=== PATIENT | female | born 1975 | race Hispanic/Latino ===

== ENCOUNTER 2017-03-01 15:23 | Inpatient (IN) | payer SELFPAY ==
[~2017-03-01] VITALS: Ht 160 cm; Wt 100.0 kg
[2017-03-01 16:42] LABS: EOSINOPHIL (%) 0.2 % (0-5); HEMATOCRIT 54.2 % (36.0-46.0); IMMATURE GRANULOCYTE (%) 0.4 % (0.0-0.7); IMMATURE GRANULOCYTE COUNT 0.1 K/uL; INSTRUMENT ABS NEUTROPHIL CT 9.5 K/uL; LYMPHOCYTE COUNT 1.4 K/uL (1.0-2.8); MCH 29.6 PG (29.0-34.0); MCHC 33.8 G/DL (30.0-36.0); MCV 87.7 FL (83-99); MEAN PLAT.VOLUME 12.9 uM^3 (9.5-12.4); NEUTROPHIL (%) 79.9 % (45-76); NEUTROPHIL COUNT 9.5 K/uL (1.8-6.4); PLATELET COUNT 192 K/uL (156-360); RBC DIS.WIDTH-CV 15.4 % (11.8-14.6); RBC DIS.WIDTH-SD 47.5 % (39-53); RED BLOOD COUNT 6.18 M/uL (3.80-5.20); WHITE BLOOD COUNT 11.9 K/uL (4.1-10.2)
[2017-03-01 17:00] LABS: CHLORIDE 91 mEq/L (99-109); POTASSIUM 4.2 mEq/L (3.7-5.4); SODIUM 130 mEq/L (136-147)
[2017-03-01 17:02] LABS: GLUCOSE 146 mg/dL (70-99)
[2017-03-01 17:03] LABS: ANION GAP 13 MEQ/L (2-14)
[2017-03-01 17:04] LABS: TOTAL BILIRUBIN 3.4 mg/dL (0.0-1.0)
[2017-03-01 17:06] LABS: ALKALINE PHOSPHATASE 115 IU/L (3-129); GFR ESTIMATE (CALCULATED) > 59 mL/min/
[2017-03-01 17:07] LABS: UREA NITROGEN (BUN) 12 mg/dL (9-23)
[2017-03-01 18:09] LABS: C-REACTIVE PROTEIN 315.4 MG/L (0-10)
[2017-03-01 22:00] VITALS: BP 143/109; BP 146/114
[2017-03-01 22:54] VITALS: BP 147/89
[2017-03-02] VITALS (10 sets, daily range): BP systolic 93–136; BP diastolic 60–75
[2017-03-02 06:45] LABS: ANION GAP 9 MEQ/L (2-14); CHLORIDE 94 MEQ/L (99-109); GFR ESTIMATE (CALCULATED) > 59 mL/min/; GLUCOSE 145 mg/dL (70-99); HDL CHOLESTEROL 38 MG/DL (Desirable>=50); LDL CHOLESTEROL 79 mg/dL (Desirable<100); NON-HDL CHOLESTEROL 93 mg/dL (Desirable<160); POTASSIUM 3.9 MEQ/L (3.7-5.4); SAMPLE HEMOLYSIS CHECK 2; SAMPLE ICTERIC CHECK 0; SAMPLE LIPEMIA CHECK 0; SODIUM 132 MEQ/L (136-147); TOTAL CHOLESTEROL 131 mg/dL (Desirable<200); TRIGLYCERIDES 72 MG/DL (Normal: <150); UREA NITROGEN (BUN) 13 mg/dL (9-23)
[2017-03-02 07:40] LABS: HEMATOCRIT 52.2 % (36.0-46.0); MCH 29.8 PG (29.0-34.0); MCHC 33.7 G/DL (30.0-36.0); MCV 88.3 FL (83-99); PLATELET COUNT 142 K/uL (156-360); RBC DIS.WIDTH-CV 15.3 % (11.8-14.6); RBC DIS.WIDTH-SD 48.3 % (39-53); RED BLOOD COUNT 5.91 M/uL (3.80-5.20); WHITE BLOOD COUNT 11.4 K/uL (4.1-10.2)
[2017-03-02 07:52] LABS: POINT-OF-CARE METER ID UU13113781
[2017-03-02 08:04] LABS: Estimated Average Glucose 171 mg/dL (70-123); HEMOGLOBIN A1c (GLYCOHEMOGLOB) 7.6 % HGB (Below 5.7)
[2017-03-02 11:21] LABS: POINT-OF-CARE METER ID UU13113781
[2017-03-02 19:12] LABS: BASE EXCESS 1.7 mEq/L (-3 to +3); BICARBONATE 24.6 mEq/L (22-26); CARBOXY HGB 2.1 % (0-5); COMMENTS - BLOOD GASES C+; METHEMOGLOBIN 1.5 % (0-1.5); PCO2 33 mm Hg (35-45); PO2 224 mm Hg (80-100); SITE RR; pH 7.48 (7.35-7.45)
[2017-03-02 19:13] LABS: DEVICE VENT; FI02 100 %; MECHANICAL RATE 18 resp/min; MODE AC; PEEP 5 CM/H20; TIDAL VOLUME 400 ML; TOTAL RESP RATE 18 resp/min
[2017-03-02 20:34] LABS: EOSINOPHIL (%) 0.4 % (0-5); EOSINOPHIL COUNT 0.1 K/uL (0-0.3); HEMATOCRIT 47.5 % (36.0-46.0); IMMATURE GRANULOCYTE (%) 0.6 % (0.0-0.7); IMMATURE GRANULOCYTE COUNT 0.1 K/uL; INSTRUMENT ABS NEUTROPHIL CT 10.1 K/uL; MCH 29.7 PG (29.0-34.0); MCHC 32.6 G/DL (30.0-36.0); MEAN PLAT.VOLUME 12.7 uM^3 (9.5-12.4); MONOCYTE (%) 9.8 % (3-12); MONOCYTE COUNT 1.2 K/uL (0-0.8); NEUTROPHIL (%) 81.4 % (45-76); NEUTROPHIL COUNT 10.1 K/uL (1.8-6.4); PLATELET COUNT 177 K/uL (156-360); RBC DIS.WIDTH-CV 15.6 % (11.8-14.6); RBC DIS.WIDTH-SD 51.2 % (39-53); RED BLOOD COUNT 5.22 M/uL (3.80-5.20); WHITE BLOOD COUNT 12.5 K/uL (4.1-10.2)
[2017-03-02 20:52] LABS: POTASSIUM 3.2 mEq/L (3.7-5.4); SODIUM 135 mEq/L (136-147)
[2017-03-02 20:53] LABS: MAGNESIUM 1.4 mg/dL (1.3-2.7)
[2017-03-02 20:56] LABS: ANION GAP 12 MEQ/L (2-14)
[2017-03-02 20:58] LABS: GFR ESTIMATE (CALCULATED) > 59 mL/min/
[2017-03-02 20:59] LABS: UREA NITROGEN (BUN) 16 mg/dL (9-23)
[2017-03-02 21:12] LABS: CHLORIDE 101 mEq/L (99-109); GLUCOSE 107 mg/dL (70-99)
[2017-03-02 22:07] LABS: TROP-I INTERPRETATION POSITIVE; TROPONIN-I 4.79 ng/mL (0.0-0.30)
[2017-03-02 22:44] LABS: POINT-OF-CARE METER ID UU13113803; POINT-OF-CARE USER ID RADDRS44
[2017-03-03] VITALS (15 sets, daily range): BP systolic 92–131; BP diastolic 64–84
[2017-03-03 00:15] LABS: METH RESISTANT S AUREUS PCR NEGATIVE (NEGATIVE)
[2017-03-03 00:19] LABS: PROBE CHECK PASS; SPECIMEN PROCESSING CONTROL PASS
[2017-03-03 06:53] LABS: TROP-I INTERPRETATION POSITIVE
[2017-03-03 07:20] LABS: HEMATOCRIT 48.6 % (36.0-46.0); MCHC 33.7 G/DL (30.0-36.0); MCV 88.8 FL (83-99); MEAN PLAT.VOLUME 13.2 uM^3 (9.5-12.4); PLATELET COUNT 189 K/uL (156-360); RBC DIS.WIDTH-CV 15.5 % (11.8-14.6); RED BLOOD COUNT 5.47 M/uL (3.80-5.20); WHITE BLOOD COUNT 12.1 K/uL (4.1-10.2)
[2017-03-03 07:26] LABS: INTER. NORMALIZED RATIO 1.3; PROTHROMBIN TIME 12.9 (9.2-11.2); PTT 31.2 (25-32)
[2017-03-03 07:57] LABS: ALKALINE PHOSPHATASE 94 IU/L (3-129); ANION GAP 13 MEQ/L (2-14); CHLORIDE 97 MEQ/L (99-109); GFR ESTIMATE (CALCULATED) > 59 mL/min/; GLUCOSE 100 mg/dL (70-99); POTASSIUM 3.3 MEQ/L (3.7-5.4); SAMPLE HEMOLYSIS CHECK 0; SAMPLE ICTERIC CHECK 0; SAMPLE LIPEMIA CHECK 0; SODIUM 135 MEQ/L (136-147); TOTAL BILIRUBIN 2.3 MG/DL (0.0-1.0); UREA NITROGEN (BUN) 18 mg/dL (9-23)
[2017-03-03 08:25] LABS: POINT-OF-CARE METER ID UU14174217
[2017-03-03 11:33] LABS: VANCOMYCIN, TROUGH 16.4 MCG/ML (10-20)
[2017-03-03 12:47] LABS: POINT-OF-CARE METER ID UU14174217
[2017-03-03 14:41] LABS: MAGNESIUM 1.7 mg/dl (1.3-2.7)
[2017-03-03 15:59] LABS: POINT-OF-CARE METER ID UU14174217
[2017-03-03 17:59] LABS: TROP-I INTERPRETATION POSITIVE; TROPONIN-I 1.64 ng/mL (0.0-0.30)
[2017-03-03 22:52] LABS: POINT-OF-CARE METER ID UU14174217
[2017-03-04] VITALS: BP 106/69
[2017-03-04 01:18] VITALS: BP 132/87
[2017-03-04 05:42] VITALS: BP 129/84
[2017-03-04 07:39] VITALS: BP 139/96
[2017-03-04 08:11] LABS: POINT-OF-CARE METER ID UU14174216
[2017-03-04 08:51] LABS: TROPONIN-I 0.99 ng/mL (0.0-0.30)
[2017-03-04 08:52] LABS: TROP-I INTERPRETATION POSITIVE
[2017-03-04 09:24] LABS: ANION GAP 12 MEQ/L (2-14); CHLORIDE 98 MEQ/L (99-109); GFR ESTIMATE (CALCULATED) > 59 mL/min/; GLUCOSE 109 mg/dL (70-99); POTASSIUM 3.2 MEQ/L (3.7-5.4); SAMPLE HEMOLYSIS CHECK 0; SAMPLE ICTERIC CHECK 0; SAMPLE LIPEMIA CHECK 0; SODIUM 138 MEQ/L (136-147); UREA NITROGEN (BUN) 18 mg/dL (9-23)
[2017-03-04 09:45] LABS: EOSINOPHIL COUNT 0.2 K/uL (0-0.3); HEMATOCRIT 49.9 % (36.0-46.0); IMMATURE GRANULOCYTE (%) 0.4 % (0.0-0.7); INSTRUMENT ABS NEUTROPHIL CT 6.2 K/uL; LYMPHOCYTE COUNT 1.2 K/uL (1.0-2.8); MCH 29.5 PG (29.0-34.0); MCHC 32.7 G/DL (30.0-36.0); MCV 90.4 FL (83-99); MEAN PLAT.VOLUME 13.3 uM^3 (9.5-12.4); MONOCYTE (%) 15.1 % (3-12); MONOCYTE COUNT 1.4 K/uL (0-0.8); NEUTROPHIL (%) 68.7 % (45-76); NEUTROPHIL COUNT 6.2 K/uL (1.8-6.4); PLATELET COUNT 170 K/uL (156-360); RBC DIS.WIDTH-CV 15.7 % (11.8-14.6); RBC DIS.WIDTH-SD 51.8 % (39-53); RED BLOOD COUNT 5.52 M/uL (3.80-5.20)
[2017-03-04 11:59] LABS: POINT-OF-CARE METER ID UU14174216
[2017-03-04 16:52] LABS: POINT-OF-CARE METER ID UU14174216
[2017-03-04 16:55] VITALS: BP 139/94
[2017-03-04 19:43] VITALS: BP 146/74
[2017-03-04 20:50] LABS: POINT-OF-CARE METER ID UU14174216
[2017-03-05 03:56] VITALS: BP 132/90
[2017-03-05 07:49] LABS: EOSINOPHIL (%) 1.1 % (0-5); EOSINOPHIL COUNT 0.1 K/uL (0-0.3); HEMATOCRIT 49.6 % (36.0-46.0); IMMATURE GRANULOCYTE (%) 0.6 % (0.0-0.7); IMMATURE GRANULOCYTE COUNT 0.1 K/uL; INSTRUMENT ABS NEUTROPHIL CT 5.9 K/uL; LYMPHOCYTE COUNT 1.1 K/uL (1.0-2.8); MCH 29.6 PG (29.0-34.0); MCHC 33.3 G/DL (30.0-36.0); MEAN PLAT.VOLUME 13.2 uM^3 (9.5-12.4); MONOCYTE (%) 12.6 % (3-12); NEUTROPHIL (%) 72.2 % (45-76); NEUTROPHIL COUNT 5.9 K/uL (1.8-6.4); PLATELET COUNT 203 K/uL (156-360); RBC DIS.WIDTH-CV 15.7 % (11.8-14.6); RED BLOOD COUNT 5.57 M/uL (3.80-5.20); WHITE BLOOD COUNT 8.2 K/uL (4.1-10.2)
[2017-03-05 08:06] LABS: POINT-OF-CARE METER ID UU14174216; POINT-OF-CARE USER ID ENVKC36
[2017-03-05 08:20] LABS: ANION GAP 9 MEQ/L (2-14); CHLORIDE 100 MEQ/L (99-109); GFR ESTIMATE (CALCULATED) > 59 mL/min/; GLUCOSE 143 mg/dL (70-99); POTASSIUM 3.5 MEQ/L (3.7-5.4); SAMPLE HEMOLYSIS CHECK 0; SAMPLE ICTERIC CHECK 0; SAMPLE LIPEMIA CHECK 0; SODIUM 137 MEQ/L (136-147); UREA NITROGEN (BUN) 19 mg/dL (9-23)
[2017-03-05 12:12] LABS: POINT-OF-CARE METER ID UU13113781; POINT-OF-CARE USER ID ENVKC36
[2017-03-05 16:26] LABS: POINT-OF-CARE METER ID UU14174216; POINT-OF-CARE USER ID ENVKC36
[2017-03-05 21:17] VITALS: BP 154/107
[2017-03-05 22:04] LABS: POINT-OF-CARE METER ID UU14174216
[2017-03-05 23:33] VITALS: BP 134/63; BP 134/93
[2017-03-06 03:33] VITALS: BP 137/93
[2017-03-06 06:04] LABS: HEMATOCRIT 50.4 % (36.0-46.0); MCH 29.4 PG (29.0-34.0); MCHC 32.5 G/DL (30.0-36.0); MCV 90.3 FL (83-99); MEAN PLAT.VOLUME 12.3 uM^3 (9.5-12.4); PLATELET COUNT 234 K/uL (156-360); RBC DIS.WIDTH-CV 15.8 % (11.8-14.6); RBC DIS.WIDTH-SD 52.1 % (39-53); RED BLOOD COUNT 5.58 M/uL (3.80-5.20); WHITE BLOOD COUNT 7.4 K/uL (4.1-10.2)
[2017-03-06 06:38] LABS: CHLORIDE 102 mEq/L (99-109); POTASSIUM 3.8 mEq/L (3.7-5.4); SODIUM 139 mEq/L (136-147)
[2017-03-06 06:39] LABS: MAGNESIUM 1.6 mg/dL (1.3-2.7)
[2017-03-06 06:40] LABS: GLUCOSE 132 mg/dL (70-99)
[2017-03-06 06:42] LABS: ANION GAP 12 MEQ/L (2-14)
[2017-03-06 06:44] LABS: GFR ESTIMATE (CALCULATED) 44 mL/min/
[2017-03-06 06:45] LABS: UREA NITROGEN (BUN) 21 mg/dL (9-23)
[2017-03-06 07:27] LABS: EOSINOPHIL COUNT 0.2 K/uL (0-0.3); IMMATURE GRANULOCYTE (%) 0.7 % (0.0-0.7); IMMATURE GRANULOCYTE COUNT 0.1 K/uL; INSTRUMENT ABS NEUTROPHIL CT 4.9 K/uL; LYMPHOCYTE COUNT 1.2 K/uL (1.0-2.8); MONOCYTE (%) 13.7 % (3-12); NEUTROPHIL (%) 66.8 % (45-76); NEUTROPHIL COUNT 4.9 K/uL (1.8-6.4)
[2017-03-06 07:42] VITALS: BP 158/98
[2017-03-06 07:46] LABS: POINT-OF-CARE METER ID UU13113781
[2017-03-06 16:29] LABS: POINT-OF-CARE METER ID UU14174216
[2017-03-06 18:15] VITALS: BP 164/96
[2017-03-06 19:01] LABS: C DIFF TOXIN NEGATIVE (NEGATIVE)
[2017-03-06 19:05] LABS: PROBE CHECK PASS; SPECIMEN PROCESSING CONTROL PASS
[2017-03-06 20:00] VITALS: BP 149/99
[2017-03-06 21:21] LABS: POINT-OF-CARE METER ID UU13113781
[2017-03-06 23:55] VITALS: BP 145/96
[2017-03-07 04:00] VITALS: BP 131/95
[2017-03-07 06:29] LABS: HEMATOCRIT 48.9 % (36.0-46.0); MCH 29.4 PG (29.0-34.0); MCHC 32.7 G/DL (30.0-36.0); MCV 89.7 FL (83-99); MEAN PLAT.VOLUME 12.4 uM^3 (9.5-12.4); PLATELET COUNT 220 K/uL (156-360); RBC DIS.WIDTH-CV 15.8 % (11.8-14.6); RBC DIS.WIDTH-SD 50.9 % (39-53); RED BLOOD COUNT 5.45 M/uL (3.80-5.20); WHITE BLOOD COUNT 5.8 K/uL (4.1-10.2)
[2017-03-07 07:04] LABS: ANION GAP 9 MEQ/L (2-14); CHLORIDE 104 MEQ/L (99-109); GFR ESTIMATE (CALCULATED) 41 mL/min/; GLUCOSE 117 mg/dL (70-99); POTASSIUM 3.7 MEQ/L (3.7-5.4); SAMPLE HEMOLYSIS CHECK 0; SAMPLE ICTERIC CHECK 0; SAMPLE LIPEMIA CHECK 0; SODIUM 140 MEQ/L (136-147); UREA NITROGEN (BUN) 25 mg/dL (9-23)
[2017-03-07 07:45] LABS: POINT-OF-CARE METER ID UU13113781
[2017-03-07 08:11] VITALS: BP 131/85
[2017-03-07 11:32] LABS: POINT-OF-CARE METER ID UU14174216
[2017-03-07 11:33] VITALS: BP 137/84
[2017-03-07 16:37] LABS: POINT-OF-CARE METER ID UU14174216
[2017-03-07 20:00] VITALS: BP 157/98
[2017-03-07 20:40] LABS: POINT-OF-CARE METER ID UU14174216
[2017-03-07 23:55] VITALS: BP 172/98
[2017-03-08 04:00] VITALS: BP 129/90; BP 144/93
[2017-03-08 06:44] LABS: ANION GAP 8 MEQ/L (2-14); CHLORIDE 102 MEQ/L (99-109); GFR ESTIMATE (CALCULATED) 38 mL/min/; GLUCOSE 110 mg/dL (70-99); POTASSIUM 4.1 MEQ/L (3.7-5.4); SAMPLE HEMOLYSIS CHECK 0; SAMPLE ICTERIC CHECK 0; SAMPLE LIPEMIA CHECK 0; SODIUM 140 MEQ/L (136-147); UREA NITROGEN (BUN) 30 mg/dL (9-23)
[2017-03-08 07:50] VITALS: BP 155/86
[2017-03-08 07:59] LABS: POINT-OF-CARE METER ID UU14174216
[2017-03-08 11:43] LABS: POINT-OF-CARE METER ID UU14174216
[2017-03-08 11:54] VITALS: BP 136/83
[2017-03-08 16:27] LABS: POINT-OF-CARE METER ID UU14174216
[2017-03-08 16:32] VITALS: BP 168/97
[2017-03-08 20:15] VITALS: BP 147/85
[2017-03-08 21:45] LABS: POINT-OF-CARE METER ID UU13113781
[2017-03-08 23:55] VITALS: BP 138/97
[2017-03-09 04:02] VITALS: BP 155/90
[2017-03-09 07:10] LABS: ANION GAP 8 MEQ/L (2-14); CHLORIDE 104 MEQ/L (99-109); GFR ESTIMATE (CALCULATED) 38 mL/min/; GLUCOSE 133 mg/dL (70-99); POTASSIUM 3.8 MEQ/L (3.7-5.4); SAMPLE HEMOLYSIS CHECK 0; SAMPLE ICTERIC CHECK 0; SAMPLE LIPEMIA CHECK 0; SODIUM 141 MEQ/L (136-147); UREA NITROGEN (BUN) 34 mg/dL (9-23)
[2017-03-09 07:46] VITALS: BP 157/91
[2017-03-09 11:41] LABS: POINT-OF-CARE METER ID UU13113781
[2017-03-09 11:51] VITALS: BP 164/96
[2017-03-09 13:00] VITALS: BP 157/91
[2017-03-09 16:06] LABS: POINT-OF-CARE METER ID UU14174216
[2017-03-09 16:27] VITALS: BP 172/99
[2017-03-09 20:18] VITALS: BP 142/73
[2017-03-09 22:22] LABS: POINT-OF-CARE USER ID ENVMNS
[2017-03-10 01:07] VITALS: BP 177/89
[2017-03-10 04:27] VITALS: BP 159/91
[2017-03-10 07:43] VITALS: BP 174/94
[2017-03-10 08:04] LABS: ANION GAP 8 MEQ/L (2-14); CHLORIDE 104 MEQ/L (99-109); GFR ESTIMATE (CALCULATED) 38 mL/min/; GLUCOSE 121 mg/dL (70-99); POTASSIUM 3.4 MEQ/L (3.7-5.4); SAMPLE HEMOLYSIS CHECK 0; SAMPLE ICTERIC CHECK 0; SAMPLE LIPEMIA CHECK 0; SODIUM 143 MEQ/L (136-147); UREA NITROGEN (BUN) 33 mg/dL (9-23)
[2017-03-10 08:11] LABS: POINT-OF-CARE METER ID UU14174216; POINT-OF-CARE USER ID ENVKC36
[2017-03-10 11:57] VITALS: BP 178/95
[2017-03-10 12:19] LABS: POINT-OF-CARE METER ID UU13113781; POINT-OF-CARE USER ID ENVKC36
[2017-03-10 15:08] VITALS: BP 174/98
[2017-03-10 16:27] LABS: POINT-OF-CARE METER ID UU14174216; POINT-OF-CARE USER ID ENVKC36
[2017-03-10 21:05] VITALS: BP 169/108
[2017-03-10 21:16] LABS: POINT-OF-CARE METER ID UU13113781
[2017-03-11 00:46] VITALS: BP 136/81
[2017-03-11 05:47] LABS: ANION GAP 9 MEQ/L (2-14); CHLORIDE 103 MEQ/L (99-109); GFR ESTIMATE (CALCULATED) 41 mL/min/; GLUCOSE 122 mg/dL (70-99); POTASSIUM 3.5 MEQ/L (3.7-5.4); SAMPLE HEMOLYSIS CHECK 0; SAMPLE ICTERIC CHECK 0; SAMPLE LIPEMIA CHECK 0; SODIUM 142 MEQ/L (136-147); UREA NITROGEN (BUN) 30 mg/dL (9-23)
[2017-03-11 08:15] LABS: POINT-OF-CARE METER ID UU13113781; POINT-OF-CARE USER ID ENVKC36
[2017-03-11 09:14] VITALS: BP 163/97
[2017-03-11 11:23] LABS: POINT-OF-CARE USER ID ENVKC36
[2017-03-11 12:04] VITALS: BP 140/91
[2017-03-11 14:42] VITALS: BP 142/94
[2017-03-11 16:37] LABS: POINT-OF-CARE USER ID ENVKC36
[2017-03-12 00:33] VITALS: BP 157/96
[2017-03-12 04:13] VITALS: BP 131/86
[2017-03-12 06:12] LABS: POINT-OF-CARE METER ID UU14188577
[2017-03-12 07:10] LABS: HEMATOCRIT 48.6 % (36.0-46.0); MCH 29.7 PG (29.0-34.0); MCHC 32.7 G/DL (30.0-36.0); MCV 90.7 FL (83-99); MEAN PLAT.VOLUME 12.2 uM^3 (9.5-12.4); PLATELET COUNT 232 K/uL (156-360); RBC DIS.WIDTH-CV 15.8 % (11.8-14.6); RBC DIS.WIDTH-SD 51.4 % (39-53); RED BLOOD COUNT 5.36 M/uL (3.80-5.20)
[2017-03-12 07:11] LABS: WHITE BLOOD COUNT 8.6 K/uL (4.1-10.2)
[2017-03-12 07:28] LABS: ANION GAP 8 MEQ/L (2-14); CHLORIDE 104 MEQ/L (99-109); GFR ESTIMATE (CALCULATED) 48 mL/min/; GLUCOSE 111 mg/dL (70-99); SAMPLE HEMOLYSIS CHECK 0; SAMPLE ICTERIC CHECK 0; SAMPLE LIPEMIA CHECK 0; SODIUM 140 MEQ/L (136-147); UREA NITROGEN (BUN) 31 mg/dL (9-23)
[2017-03-12 08:45] VITALS: BP 154/92
[2017-03-12 12:46] VITALS: BP 151/88
[2017-03-12 16:34] VITALS: BP 145/90
[2017-03-12 20:00] VITALS: BP 158/89
[2017-03-13] VITALS: BP 163/98
[2017-03-13 03:48] VITALS: BP 147/89
[2017-03-13 07:35] VITALS: BP 163/97
[2017-03-13 07:36] LABS: ANION GAP 10 MEQ/L (2-14); CHLORIDE 102 MEQ/L (99-109); GFR ESTIMATE (CALCULATED) 48 mL/min/; GLUCOSE 122 mg/dL (70-99); POTASSIUM 3.8 MEQ/L (3.7-5.4); SAMPLE HEMOLYSIS CHECK 0; SAMPLE ICTERIC CHECK 0; SAMPLE LIPEMIA CHECK 0; SODIUM 138 MEQ/L (136-147); UREA NITROGEN (BUN) 28 mg/dL (9-23)
[2017-03-13 10:11] LABS: HEMATOCRIT 49.8 % (36.0-46.0); MCH 29.4 PG (29.0-34.0); MCHC 32.7 G/DL (30.0-36.0); MCV 89.7 FL (83-99); MEAN PLAT.VOLUME 12.5 uM^3 (9.5-12.4); PLATELET COUNT 220 K/uL (156-360); RBC DIS.WIDTH-CV 15.9 % (11.8-14.6); RED BLOOD COUNT 5.55 M/uL (3.80-5.20); WHITE BLOOD COUNT 7.5 K/uL (4.1-10.2)
[2017-03-13 10:24] LABS: CHLORIDE 104 mEq/L (99-109); POTASSIUM 4.1 mEq/L (3.7-5.4); SODIUM 142 mEq/L (136-147)
[2017-03-13 10:26] LABS: GLUCOSE 133 mg/dL (70-99)
[2017-03-13 10:28] LABS: ANION GAP 9 MEQ/L (2-14)
[2017-03-13 10:30] LABS: GFR ESTIMATE (CALCULATED) 48 mL/min/
[2017-03-13 10:31] LABS: UREA NITROGEN (BUN) 26 mg/dL (9-23)
[2017-03-13 15:30] VITALS: BP 157/96
[2017-03-13 16:48] LABS: POINT-OF-CARE METER ID UU14188577
[2017-03-13 19:25] VITALS: BP 158/99
[2017-03-14 00:21] VITALS: BP 163/101
[2017-03-14 03:41] VITALS: BP 135/87
[2017-03-14 06:12] LABS: POINT-OF-CARE METER ID UU14188577
[2017-03-14 07:16] VITALS: BP 152/99
[2017-03-14 10:20] VITALS: BP 160/99
[2017-03-14 11:44] LABS: POINT-OF-CARE METER ID UU14188577
[2017-03-14 15:25] VITALS: BP 139/93
[2017-03-14 16:30] LABS: POINT-OF-CARE METER ID UU14149397
[2017-03-14 19:57] VITALS: BP 168/105
[2017-03-14 21:42] LABS: POINT-OF-CARE METER ID UU14188577
[2017-03-15 00:10] VITALS: BP 147/91
[2017-03-15 03:43] VITALS: BP 138/83
[2017-03-15 07:04] LABS: HEMATOCRIT 46.4 % (36.0-46.0); MCH 30.6 PG (29.0-34.0); MCHC 33.2 G/DL (30.0-36.0); MCV 92.2 FL (83-99); MEAN PLAT.VOLUME 12.8 uM^3 (9.5-12.4); PLATELET COUNT 208 K/uL (156-360); RBC DIS.WIDTH-CV 16.2 % (11.8-14.6); RBC DIS.WIDTH-SD 53.1 % (39-53); RED BLOOD COUNT 5.03 M/uL (3.80-5.20); WHITE BLOOD COUNT 8.3 K/uL (4.1-10.2)
[2017-03-15 07:48] LABS: ANION GAP 9 MEQ/L (2-14); CHLORIDE 104 MEQ/L (99-109); GFR ESTIMATE (CALCULATED) 53 mL/min/; GLUCOSE 117 mg/dL (70-99); POTASSIUM 4.1 MEQ/L (3.7-5.4); SAMPLE HEMOLYSIS CHECK 0; SAMPLE ICTERIC CHECK 0; SAMPLE LIPEMIA CHECK 0; SODIUM 144 MEQ/L (136-147); UREA NITROGEN (BUN) 25 mg/dL (9-23)
[2017-03-15 07:55] VITALS: BP 152/91
[2017-03-15 11:57] LABS: POINT-OF-CARE METER ID UU14188577
[2017-03-15 16:27] VITALS: BP 155/89
[2017-03-15 17:11] LABS: POINT-OF-CARE METER ID UU14188577
[2017-03-15 21:01] VITALS: BP 146/94
[2017-03-15 22:10] LABS: POINT-OF-CARE METER ID UU14188577
[2017-03-15 23:33] VITALS: BP 146/86
[2017-03-16 04:09] VITALS: BP 132/76
[2017-03-16 06:52] LABS: POINT-OF-CARE METER ID UU14188577
[2017-03-16 09:18] LABS: HEMATOCRIT 47.5 % (36.0-46.0); MCH 30.1 PG (29.0-34.0); MCHC 32.4 G/DL (30.0-36.0); MCV 92.8 FL (83-99); MEAN PLAT.VOLUME 13.1 uM^3 (9.5-12.4); PLATELET COUNT 216 K/uL (156-360); RBC DIS.WIDTH-CV 16.1 % (11.8-14.6); RBC DIS.WIDTH-SD 53.6 % (39-53); RED BLOOD COUNT 5.12 M/uL (3.80-5.20); WHITE BLOOD COUNT 7.2 K/uL (4.1-10.2)
[2017-03-16 09:43] LABS: ANION GAP 8 MEQ/L (2-14); CHLORIDE 103 MEQ/L (99-109); GFR ESTIMATE (CALCULATED) 58 mL/min/; GLUCOSE 105 mg/dL (70-99); POTASSIUM 3.4 MEQ/L (3.7-5.4); SAMPLE HEMOLYSIS CHECK 0; SAMPLE ICTERIC CHECK 0; SAMPLE LIPEMIA CHECK 0; SODIUM 143 MEQ/L (136-147); UREA NITROGEN (BUN) 19 mg/dL (9-23)
[2017-03-16 09:46] VITALS: BP 174/91
[2017-03-16 12:05] VITALS: BP 158/77
[2017-03-16 12:13] LABS: POINT-OF-CARE METER ID UU14188577
[2017-03-16 16:03] VITALS: BP 141/83
[2017-03-16 16:50] LABS: POINT-OF-CARE METER ID UU14188577
[2017-03-16 19:43] VITALS: BP 164/92
[2017-03-16 23:28] VITALS: BP 173/102
[2017-03-17 02:04] VITALS: BP 162/92
[2017-03-17 03:58] VITALS: BP 156/91
[2017-03-17 07:41] LABS: ANION GAP 7 MEQ/L (2-14); CHLORIDE 103 MEQ/L (99-109); GFR ESTIMATE (CALCULATED) 48 mL/min/; GLUCOSE 88 mg/dL (70-99); POTASSIUM 3.9 MEQ/L (3.7-5.4); SAMPLE HEMOLYSIS CHECK 0; SAMPLE ICTERIC CHECK 0; SAMPLE LIPEMIA CHECK 0; SODIUM 143 MEQ/L (136-147); UREA NITROGEN (BUN) 19 mg/dL (9-23)
[2017-03-17 08:00] VITALS: BP 148/87
[2017-03-17 12:16] LABS: POINT-OF-CARE METER ID UU14188577
[2017-03-17 15:44] VITALS: BP 154/93
[2017-03-17 17:09] LABS: POINT-OF-CARE METER ID UU14188577
[2017-03-17 20:15] VITALS: BP 148/84
[2017-03-18] VITALS (7 sets, daily range): BP systolic 137–154; BP diastolic 79–94
[2017-03-18 07:27] LABS: HEMATOCRIT 45.6 % (36.0-46.0); MCHC 32.5 G/DL (30.0-36.0); MCV 92.5 FL (83-99); MEAN PLAT.VOLUME 13.2 uM^3 (9.5-12.4); PLATELET COUNT 196 K/uL (156-360); RBC DIS.WIDTH-CV 16.1 % (11.8-14.6); RBC DIS.WIDTH-SD 53.5 % (39-53); RED BLOOD COUNT 4.93 M/uL (3.80-5.20); WHITE BLOOD COUNT 6.9 K/uL (4.1-10.2)
[2017-03-18 08:00] LABS: ANION GAP 5 MEQ/L (2-14); CHLORIDE 103 MEQ/L (99-109); GFR ESTIMATE (CALCULATED) 53 mL/min/; GLUCOSE 71 mg/dL (70-99); POTASSIUM 3.9 MEQ/L (3.7-5.4); SAMPLE HEMOLYSIS CHECK 0; SAMPLE ICTERIC CHECK 0; SAMPLE LIPEMIA CHECK 0; SODIUM 141 MEQ/L (136-147); UREA NITROGEN (BUN) 19 mg/dL (9-23)
[2017-03-19 03:51] VITALS: BP 140/83
[2017-03-19 07:46] LABS: ANION GAP 6 MEQ/L (2-14); CHLORIDE 103 MEQ/L (99-109); GFR ESTIMATE (CALCULATED) 53 mL/min/; POTASSIUM 4.2 MEQ/L (3.7-5.4); SAMPLE HEMOLYSIS CHECK 0; SAMPLE ICTERIC CHECK 0; SAMPLE LIPEMIA CHECK 0; SODIUM 140 MEQ/L (136-147); UREA NITROGEN (BUN) 21 mg/dL (9-23)
[2017-03-19 07:48] LABS: GLUCOSE 89 mg/dL (70-99)
[2017-03-19 08:34] VITALS: BP 144/80
[2017-03-19 12:15] VITALS: BP 138/77
[2017-03-19 16:00] VITALS: BP 166/96
[2017-03-19 16:18] LABS: POINT-OF-CARE METER ID UU14149397
[2017-03-19 19:29] VITALS: BP 172/91
[2017-03-19 23:32] VITALS: BP 144/81
[2017-03-20 04:05] VITALS: BP 139/80
[2017-03-20 08:13] VITALS: BP 142/83
[2017-03-20 11:26] LABS: ANION GAP 3 MEQ/L (2-14); CHLORIDE 102 MEQ/L (99-109); GFR ESTIMATE (CALCULATED) 58 mL/min/; POTASSIUM 4.5 MEQ/L (3.7-5.4); SAMPLE HEMOLYSIS CHECK 0; SAMPLE ICTERIC CHECK 0; SAMPLE LIPEMIA CHECK 0; SODIUM 137 MEQ/L (136-147); UREA NITROGEN (BUN) 18 mg/dL (9-23)
[2017-03-20 11:27] LABS: GLUCOSE 112 mg/dL (70-99)
[2017-03-20 11:36] VITALS: BP 164/82
[2017-03-20 12:08] LABS: POINT-OF-CARE METER ID UU14149397
[2017-03-20 15:55] VITALS: BP 158/90
[2017-03-20 16:29] LABS: POINT-OF-CARE METER ID UU14149397
[2017-03-20 19:59] VITALS: BP 165/90
[2017-03-20 23:27] VITALS: BP 165/83
[2017-03-21 04:30] VITALS: BP 154/78
[2017-03-21 08:04] VITALS: BP 158/92
[2017-03-21 10:35] LABS: HEMATOCRIT 45.3 % (36.0-46.0); MCH 29.7 PG (29.0-34.0); MCHC 32.5 G/DL (30.0-36.0); MCV 91.5 FL (83-99); MEAN PLAT.VOLUME 13.1 uM^3 (9.5-12.4); PLATELET COUNT 195 K/uL (156-360); RBC DIS.WIDTH-CV 15.9 % (11.8-14.6); RBC DIS.WIDTH-SD 52.6 % (39-53); RED BLOOD COUNT 4.95 M/uL (3.80-5.20); WHITE BLOOD COUNT 6.8 K/uL (4.1-10.2)
[2017-03-21 10:48] LABS: ANION GAP 6 MEQ/L (2-14); CHLORIDE 101 MEQ/L (99-109); GFR ESTIMATE (CALCULATED) 53 mL/min/; GLUCOSE 88 mg/dL (70-99); POTASSIUM 4.6 MEQ/L (3.7-5.4); SAMPLE HEMOLYSIS CHECK 0; SAMPLE ICTERIC CHECK 0; SAMPLE LIPEMIA CHECK 0; SODIUM 137 MEQ/L (136-147); UREA NITROGEN (BUN) 20 mg/dL (9-23)
[2017-03-21 10:52] VITALS: BP 171/83
[2017-03-21 11:25] LABS: POINT-OF-CARE METER ID UU14188577
[2017-03-21 16:15] VITALS: BP 137/78
[2017-03-21 17:16] LABS: POINT-OF-CARE METER ID UU14188577
[2017-03-21 20:29] VITALS: BP 168/83
[2017-03-21 23:51] VITALS: BP 164/98
[2017-03-22 04:30] VITALS: BP 168/97
[2017-03-22 06:23] LABS: POINT-OF-CARE METER ID UU14188577
[2017-03-22 07:50] VITALS: BP 150/86
[2017-03-22 10:50] VITALS: BP 147/93
[2017-03-22 12:02] LABS: POINT-OF-CARE METER ID UU14188577
[2017-03-22 15:20] VITALS: BP 137/86
[2017-03-22 17:17] LABS: POINT-OF-CARE METER ID UU14149397
[2017-03-22 20:15] VITALS: BP 152/88
[2017-03-23] VITALS (7 sets, daily range): BP systolic 117–165; BP diastolic 67–85
[2017-03-23 06:23] LABS: POINT-OF-CARE METER ID UU14149397
[2017-03-23 11:25] LABS: POINT-OF-CARE METER ID UU14149397
[2017-03-23 16:59] LABS: POINT-OF-CARE METER ID UU14188577
[2017-03-23 21:40] LABS: POINT-OF-CARE METER ID UU14188577
[2017-03-24 04:07] VITALS: BP 110/59
[2017-03-24 06:41] LABS: POINT-OF-CARE METER ID UU14149397
[2017-03-24 07:47] VITALS: BP 148/82
[2017-03-24 11:33] LABS: POINT-OF-CARE METER ID UU14188577
[2017-03-24 11:50] VITALS: BP 165/88
[2017-03-24 15:46] VITALS: BP 132/78
[2017-03-24 19:54] VITALS: BP 171/96
[2017-03-24 22:06] LABS: POINT-OF-CARE METER ID UU14188577
[2017-03-24 23:54] VITALS: BP 133/74
[2017-03-25 06:35] LABS: POINT-OF-CARE METER ID UU14188577
[2017-03-25 08:52] VITALS: BP 146/85
[2017-03-25 10:46] LABS: HEMATOCRIT 44.2 % (36.0-46.0); MCH 29.9 PG (29.0-34.0); MCV 90.4 FL (83-99); MEAN PLAT.VOLUME 13.3 uM^3 (9.5-12.4); PLATELET COUNT 191 K/uL (156-360); RBC DIS.WIDTH-CV 16.2 % (11.8-14.6); RBC DIS.WIDTH-SD 52.6 % (39-53); RED BLOOD COUNT 4.89 M/uL (3.80-5.20); WHITE BLOOD COUNT 7.8 K/uL (4.1-10.2)
[2017-03-25 11:14] LABS: ANION GAP 8 MEQ/L (2-14); CHLORIDE 101 MEQ/L (99-109); GFR ESTIMATE (CALCULATED) > 59 mL/min/; GLUCOSE 121 mg/dL (70-99); POTASSIUM 4.5 MEQ/L (3.7-5.4); SAMPLE HEMOLYSIS CHECK 0; SAMPLE ICTERIC CHECK 0; SAMPLE LIPEMIA CHECK 0; SODIUM 136 MEQ/L (136-147); UREA NITROGEN (BUN) 15 mg/dL (9-23)
[2017-03-25 11:57] LABS: POINT-OF-CARE METER ID UU14188577
[2017-03-25 12:09] VITALS: BP 120/78
[2017-03-25 15:57] VITALS: BP 130/78
[2017-03-25 19:50] VITALS: BP 141/78
[2017-03-25 23:09] VITALS: BP 166/88
[2017-03-26 03:44] VITALS: BP 162/85
[2017-03-26 08:33] VITALS: BP 138/77
[2017-03-26] MEDS ORDERED: CLOPIDOGREL75 MG PO (08:50)
[2017-03-26] MEDS ORDERED: LISINOPRIL20 MG PO (08:51)
[2017-03-26] MEDS ORDERED: APRESOLINE25 MG PO (08:51)
[2017-03-26] MEDS ORDERED: ASPIR-LOW81 MG PO (08:51)
[2017-03-26] MEDS ORDERED: CARVEDILOL25 MG PO (08:51)
[2017-03-26] MEDS ORDERED: ATORVASTATIN CA40 MG PO (08:51)
[2017-03-26] MEDS ORDERED: APRESOLINE50 MG PO (08:51)
[2017-03-26] MEDS ORDERED: TYLENOL REGULA325 MG PO (08:52)
[2017-03-26] MEDS ORDERED: Zeasorb Antifungal T TP (08:53)
[2017-03-26] MEDS ORDERED: DOCUSATE SODIU100 MG PO (08:53)
[2017-03-26] MEDS ORDERED: POLYETHYLENE GL17 GM PO (08:53)
[2017-03-26] MEDS ORDERED: SENNA LAX8.6 MG PO (08:53)
[2017-03-26] MEDS ORDERED: OXYCONTIN10 MG PO ×2 (08:54→12:09)
[2017-03-26] MEDS ORDERED: NOVOLOG PE100 UNITS/ SC (09:53)
[2017-03-26] MEDS ORDERED: LEVEMIR100 UNIT/2 SC (09:53)
[2017-03-26 11:53] VITALS: BP 149/83
[2017-03-26 11:55] LABS: POINT-OF-CARE METER ID UU14188577
[2017-03-26] MEDS ORDERED: LEVAQUIN750 MG PO (13:25)
== END 2017-03-26 15:19 | disposition designated cancer center or children's hospital (05) | DRG 853 ==
LOC: EME 15:23 → EDBD 15:23 → 4EAST 20:22 → 3EAST 20:22 → EDOF 20:22 → 4EAST 21:18 → 4WEST 03-02 18:30 → 4EAST 03-04 00:16 → 3EAST 03-11 23:27
PROVIDERS: Anesthesiology; Emergency Medicine; Hospitalist; Internal Medicine; Internal Medicine Cardiovascular Disease; Physician Assistant; Physician Assistant Medical; Specialist; Surgery
DX: A41.9 Sepsis, unspecified organism (principal); E11.628 Type 2 diabetes mellitus with other skin complications; L03.116 Cellulitis of left lower limb; L03.115 Cellulitis of right lower limb; B95.61 Methicillin susceptible Staphylococcus aureus infection as the cause of diseases classified elsewhere; B96.89 Other specified bacterial agents as the cause of diseases classified elsewhere; I21.4 Non-ST elevation (NSTEMI) myocardial infarction; J96.01 Acute respiratory failure with hypoxia; I63.9 Cerebral infarction, unspecified; I97.121 Postprocedural cardiac arrest following other surgery; N17.9 Acute kidney failure, unspecified; N14.1 Nephropathy induced by other drugs, medicaments and biological substances; T46.4X5A Adverse effect of angiotensin-converting-enzyme inhibitors, initial encounter; Y83.8 Other surgical procedures as the cause of abnormal reaction of the patient, or of later complication, without mention of misadventure at the time of the procedure; L89.312 Pressure ulcer of right buttock, stage 2; J18.9 Pneumonia, unspecified organism; E87.6 Hypokalemia; T38.3X6A Underdosing of insulin and oral hypoglycemic [antidiabetic] drugs, initial encounter; Z91.128 Patient's intentional underdosing of medication regimen for other reason; E11.51 Type 2 diabetes mellitus with diabetic peripheral angiopathy without gangrene; E11.621 Type 2 diabetes mellitus with foot ulcer; L97.511 Non-pressure chronic ulcer of other part of right foot limited to breakdown of skin; L97.521 Non-pressure chronic ulcer of other part of left foot limited to breakdown of skin; I25.10 Atherosclerotic heart disease of native coronary artery without angina pectoris; I25.5 Ischemic cardiomyopathy; I42.0 Dilated cardiomyopathy; I95.9 Hypotension, unspecified; I11.0 Hypertensive heart disease with heart failure; I50.20 Unspecified systolic (congestive) heart failure; E11.65 Type 2 diabetes mellitus with hyperglycemia; E11.3593 Type 2 diabetes mellitus with proliferative diabetic retinopathy without macular edema, bilateral; H43.13 Vitreous hemorrhage, bilateral; I27.2 Other secondary pulmonary hypertension; E66.01 Morbid (severe) obesity due to excess calories; Z68.42 Body mass index [BMI] 45.0-49.9, adult; F41.9 Anxiety disorder, unspecified; H54.8 Legal blindness, as defined in USA; I77.1 Stricture of artery; N63 Unspecified lump in breast; G89.18 Other acute postprocedural pain; M79.672 Pain in left foot; M79.671 Pain in right foot; Z71.3 Dietary counseling and surveillance
CPT/HCPCS: 36600; 70450; 70551; 71010; 71275; 73630; 73701; 80048; 80048 91; 80053; 80061; 80202; 82803; 82948; 83036; 83605; 83735; 84484; 85025; 85027; 85347; 85610; 85730; 86140; 87040; 87070; 87075; 87076; 87077; 87147; 87185; 87186; 87205; 87493; 87641; 87801; 92610 GN; 93005; 93306; 93880; 93925; 93970; 94002; 94799; 97530 GO; 97530 GP; 99281; 99285; A6260; C1725; C1769; C1874; C1887; J0330; J0360; J1170; J1200; J1644; J1650; J1815; J1940; J2060; J2185; J2250; J2405; J2543; J2765; J3010; J3246; J3370; J7030; J7050; P9045